=== PATIENT | male | born 1955 ===

== ENCOUNTER → 2024-05-10 08:20 | Outpatient (REF) | payer BC, SELFPAY | LOC: PAVMRI 08:20 | PROVIDERS: ATTENDING PHYSICIAN Internal Medicine Cardiovascular Disease; FAMILY PHYSICIAN Internal Medicine; REFERRING PHYSICIAN Internal Medicine Cardiovascular Disease | DX: I49.9 Cardiac arrhythmia, unspecified (principal) | CPT/HCPCS: 75561; 75565; A9585 ==